=== PATIENT | male | born 2005 | race Hispanic/Latino ===

== ENCOUNTER → 2023-05-17 | Emergency (ER) | payer OTHER ==
[2023-05-17 17:01] LABS: Absolute Lymphocytes (CBC) 1.5 K/uL (0.7-4.9); Hematocrit 43.4 % (39.6-49.0); MCV 83.8 fL (80-100); MPV 7.3 fL (7.6-11.3); Platelets 218 thou/uL (152-406); RBC Red Blood Cell Count 5.18 M/uL (4.33-5.43)
[2023-05-17 17:20] LABS: Bilirubin Total 0.7 mg/dL (0.2-1.0); Potassium 4.2 mEq/L (3.5-5.1); Protein, Total 7.7 g/dL (6.4-8.2)
--- NOTE | 2023-05-17 17:24 | RAD REPORT ---
EXAM DESCRIPTION: CT - Abdomen Pelvis W Contrast - 05/17/2023 4:56 pm CLINICAL HISTORY: ABD PAIN COMPARISON: No comparisons TECHNIQUE: Thin cut axial CT imaging of the abdomen and pelvis was performed following intravenous a dministration of 100 mL Isovue 300. Multiplanar reformats were generated and reviewed. All CT scans are performed using dose optimization technique as appropriate and may include automated exposure control or mA/KV adjustment according to patient size. FINDINGS: No suspicious findings in the lung bases. The liver, spleen, adrenal glands, and pancreas show no suspicious findings. Gallbladder and biliary tree are also without suspicious finding. Symmetric renal function is seen with no hydronephrosis or suspicious renal mass. No dilated bowel loops or bowel wall thickening. No free air, free fluid or inflammatory stranding. N o hernia, mass or bulky lymphadenopathy. The urinary bladder is without significant finding. No suspicious bony findings. IMPRESSION: No acute intra-abdominal process.
[2023-05-17 17:37] LABS: Specific Gravity 1.017 (1.005-1.030); Urine Bilirubin NEGATIVE (Negative); Urine Blood Negative (Negative); Urine Clarity Clear (Clear); Urine Color Light-Yellow (Yellow); Urine Glucose NEGATIVE (Negative); Urine Protein NEGATIVE (Negative); Urine Urobilinogen Normal (Normal); Urine pH 7.5 (5.0-7.0)
--- NOTE | 2023-05-17 17:44 | ER ---
Nurse's Notes [facility] Name: Dilshad Chang Age: 17 yrs Sex: Male : 2005 Arrival Date: 05/17/2023 Time: 16:23 Bed 9 Private MD: Diagnosis: Lower abdominal pain, unspecified Presentation: 05/17 16:40 Chief complaint: Patient states: right lower abdominal pain for about a month that got nj1 worse yesterday, has had diarrhea and a couple episodes of vomiting, denies nausea at this time. Coronavirus screen: Vaccine status: Patient reports receiving the 2nd dose of the covid vaccine. 16:40 Method Of Arrival: Law Enforcement: [place] [employer] 16:40 Ebola Screen: Patient denies travel to an Ebola-affected area in the 21 days before nj1 illness onset. Initial Sepsis Screen: Does the patient meet any 2 criteria? No. Patient's initial sepsis screen is negative. Does the patient have a suspected source of infection? No. Patient's initial sepsis screen is negative. Risk Assessment: Do you want to hurt yourself or someone else? Patient reports no desire to harm self or others. Onset of symptoms was March 2023. 16:40 Acuity: ARRON 3 nj1 Historical: - Allergies: 16:40 No Known Allergies; nj1 - PMHx: 16:40 None; nj1 - PSHx: 16:40 None; nj1 - Immunization history:: Client reports receiving the 2nd dose of the Covid vaccine. - Social history:: Smoking status: Patient denies any tobacco usage or history of. Screenin:00 [facility] ED Fall Risk Assessment (Adult) Score/Fall Risk Level 0 - 2 = Low Risk nj Oriented to surroundings, Maintained a safe environment, Hourly rounding (assess needs \T\ fall precautionary measures) done. Abuse screen: Denies threats or abuse. Denies injuries from another. Nutritional screening: No deficits noted. Tuberculosis screening: No symptoms or risk factors identified. Assessment: 16:45 General: Appears in no apparent distress. comfortable, Behavior is calm, cooperative, nj1 appropriate for age. Pain: Complains of pain in abdomen Pain currently is 8 out of 10 on a pain scale. Quality of pain is described as sharp. Neuro: Level of Consciousness is awake, alert, obeys commands, Oriented to person, place, time, situation. Cardiovascular: Patient's skin is warm and dry. Respiratory: Airway is patent Respiratory effort is even, unlabored. GI: Reports lower abdominal pain, Patient currently denies nausea. 17:36 Reassessment: Patient appears in no apparent distress at this time. No changes from nj1 previously documented assessment. Patient and/or family updated on plan of care and expected duration. Pain level reassessed. Patient is alert, oriented x 3, equal unlabored respirations, skin warm/dry/pink. Vital Signs: 16:40 BP 141 / 89; Pulse 60; Resp 17; Temp 98.5(O); Pulse Ox 99% on R/A; Weight 93.44 kg; nj1 Height 5 ft. 7 in. ; Pain 8/10; 18:00 BP 131 / 88; Pulse 60; Resp 16; Pulse Ox 100% on R/A; nj1 16:40 Body Mass Index 32.26 (93.44 kg, 170.18 cm) - Percentile 97.0 % nj1 16:40 Pain Scale: Adult nj ED Course: 16:28 Patient arrived in ED. ap3 16:30 Raman White DO is Attending Physician. ms3 16:32 Beba Spencer, DARI is Primary Nurse. nj1 16:45 Inserted saline lock: 20 gauge in right antecubital area, using aseptic technique. nj1 Blood collected. 16:56 Triage completed. nj1 16:57 Arm band placed on right wrist. nj1 16:58 CT Abd/Pelvis - IV Contrast Only In Process Unspecified. EDMS 17:00 Patient has correct armband on for positive identification. Bed in low position. Call nj1 light in reach. Adult w/ patient. Provided Education on: call light, fall precautions. 17:36 Urinalysis w/ reflexes Sent. nj1 18:00 No provider procedures requiring assistance completed. nj1 18:00 IV discontinued, intact, bleeding controlled. nj1 Administered Medications: No medications were administered Medication: 18:00 VIS not applicable for this client. nj1 Outcome: 17:44 Discharge ordered by . ms3 18:00 Discharged to Law Enforcement nj1 18:00 Condition: stable 18:00 Discharge instructions given to patient, Instructed on discharge instructions, follow up and referral plans. Demonstrated understanding of instructions, follow-up care, 18:12 Patient left the ED. nj1 Signatures: Dispatcher [employer] Geno [place], RN RN ap3 Raman White DO DO ms3 Beba Spencer, DARI RN nj1
--- NOTE | 2023-05-17 17:44 | EDPHYS ---
Physician Documentation [facility] Name: Dilshad Chang Age: 17 yrs Sex: Male : 2005 Arrival Date: 05/17/2023 Time: 16:23 Bed 9 Private MD: ED Physician Raman White HPI: 05/17 16:31 This 17 yrs old Male presents to ER via Unassigned with complaints of abdominal pain. ms3 16:31 17-year-old male with no past medical history presents to the emergency department for ms3 right lower quadrant abdominal pain that has been ongoing for 2 weeks. The pain is rated at a 7/10. Patient states the pain has become worse over the last 2 days and is sharp in nature. Patient denies any alleviating or inciting factors. Patient denies fevers, chills. Patient endorses nausea and vomiting. Historical: - Allergies: 16:40 No Known Allergies; nj1 - PMHx: 16:40 None; nj1 - PSHx: 16:40 None; nj1 - Immunization history:: Client reports receiving the 2nd dose of the Covid vaccine. - Social history:: Smoking status: Patient denies any tobacco usage or history of. ROS: 16:31 Constitutional: Negative for fever, and chills. Neck: Negative for injury, pain, and ms3 swelling, Cardiovascular: Negative for chest pain, and palpitations. Respiratory: Negative for shortness of breath, cough, wheezing, and pleuritic chest pain, 16:31 MS/Extremity: Negative for injury and deformity, Skin: Negative for injury, rash, and discoloration, 16:31 Abdomen/GI: Positive for abdominal pain, nausea and vomiting, 16:31 All other systems are negative, Exam: 16:31 Constitutional: This is a well developed, well nourished patient who is awake, alert, ms3 and in no acute distress. Head/Face: Normocephalic, atraumatic. Neck: Trachea midline, no cervical lymphadenopathy. Supple, full range of motion without nuchal rigidity, or vertebral point tenderness. No Meningismus. Chest/axilla: Normal chest wall appearance and motion. Nontender with no deformity. Cardiovascular: Regular rate and rhythm with a normal S1 and S2. No gallops, murmurs, or rubs. Normal PMI, no JVD. No pulse deficits. Respiratory: Lungs have equal breath sounds bilaterally, clear to auscultation and percussion. No rales, rhonchi or wheezes noted. No increased work of breathing, no retractions or nasal flaring. Skin: Warm, dry with normal turgor. Normal color with no rashes, no lesions, and no evidence of cellulitis. 16:31 Abdomen/GI: Inspection: abdomen appears normal, Bowel sounds: normal, Palpation: moderate abdominal tenderness, in the right lower quadrant, Vital Signs: 16:40 BP 141 / 89; Pulse 60; Resp 17; Temp 98.5(O); Pulse Ox 99% on R/A; Weight 93.44 kg; nj1 Height 5 ft. 7 in. ; Pain 8/10; 18:00 BP 131 / 88; Pulse 60; Resp 16; Pulse Ox 100% on R/A; nj1 16:40 Body Mass Index 32.26 (93.44 kg, 170.18 cm) - Percentile 97.0 % nj1 16:40 Pain Scale: Adult nj1 MDM: 16:30 Patient medically screened. ms3 16:31 Differential diagnosis: appendicitis, Cholelithiasis, diverticulitis. ms3 17:44 Data reviewed: vital signs, nurses notes, lab test result(s), radiologic studies, and ms3 as a result, I will discharge patient. Counseling: I had a detailed discussion with the patient and/or guardian regarding the historical points, exam findings, and any diagnostic results supporting the discharge/admit diagnosis, lab results, radiology results, the need for outpatient follow up, to return to the emergency department if symptoms worsen or persist or if there are any questions or concerns that arise at home. ED course: Discussed labs, CT scan with patient. Patient to follow-up in the residential system in 2 to 3 days. Patient understands agrees with plan. All questions were answered. Return precautions discussed include worsening symptoms, or any other concerns. 05/17 16:30 Order name: CBC with Diff; Complete Time: 17:37 ms3 05/17 16:30 Order name: CMP; Complete Time: 17:37 ms3 05/17 16:30 Order name: Lipase; Complete Time: 17:37 ms3 05/17 16:30 Order name: Urinalysis w/ reflexes; Complete Time: 17:43 ms3 05/17 16:30 Order name: CT Abd/Pelvis - IV Contrast Only; Complete Time: 17:37 ms3 05/17 16:30 Order name: IV Saline Lock; Complete Time: 17:00 ms3 05/17 16:30 Order name: Labs collected and sent; Complete Time: 17:00 ms3 Administered Medications: No medications were administered Disposition Summary: 05/17/23 17:44 Discharge Ordered Notes: Location: Home ms3 Condition: Stable ms3 Diagnosis - Lower abdominal pain, unspecified ms3 Followup: ms3 - With: Private Physician - When: 2 - 3 days - Reason: Recheck today's complaints Discharge Instructions: - Discharge Summary Sheet ms3 - Abdominal Pain, Adult ms3 Forms: - Medication Reconciliation Form ms3 - Thank You Letter ms3 - Antibiotic Education ms3 - Prescription Opioid Use ms3 - Patient Portal Instructions ms3 - Leadership Thank You Letter ms3 Signatures: Dispatcher [employer] Raman Stahl DO DO ms3 Beba Spencer RN RN nj1
[2023-05-17 22:26] VITALS: BP 131/88; TEMP 98.5; O2SAT 100
== END ==
LOC: ER 16:23
DX: R10.31 Right lower quadrant pain (principal); R11.2 Nausea with vomiting, unspecified
CPT/HCPCS: 85025; 36415; 81003; 83690; 80053; 74177; Q9967